=== PATIENT | female | born 1955 | race American Indian/Alaskan Native ===

== ENCOUNTER 2020-05-23 11:30 | Outpatient (CLI) | payer OTHER ==
--- NOTE | 2020-06-04 10:28 | Mammography Report ---
DIGITAL SCREENING MAMMOGRAM WITH CAD, 05/23/2020 INDICATION: Routine screening mammography. SCREENING MAMMOGRAM TECHNIQUE: Digital bilateral 2D mammography was obtained in the craniocaudal and mediolateral obliq ue projections. This examination was interpreted with the benefit of Computer-Aided Detection analysi s. COMPARISON: 12/22/2017 FINDINGS: Breast Density: The breasts are heterogeneously dense, which may obscure small masses. There is no evidence of dominant mass, suspicious calcifications or architectural distortion in eithe r breast. IMPRESSION: No evidence of malignancy Follow up recommendation: Routine yearly BI-RADS Category 1: Negative. A "normal" or negative report should not discourage follow up or biopsy of a clinically significant f inding. A written summary of these findings will be mailed to the patient. The patient will be entered into a mammography reporting system which will generate a reminder letter for the patient's next appointmen t at the appropriate interval. The [employer] recommends yearly mammograms starting at age 40 and continuing as l mushtaq as a woman is in good health. Breast MRI is recommended for women with an approximate 20-25% or greater lifetime risk of breast cancer, including women with a strong family history of breast or ova liseth cancer or who have been treated for Hodgkin's disease. Signer Name: Pérez Lima MD Signed: 06/04/2020 10:23 AM Workstation Name: [id number]
== END 2020-05-23 11:31 | disposition home or self-care (01) ==
LOC: MAMMO 11:30
PROVIDERS: ATTEND Internal Medicine
DX: Z12.31 Encounter for screening mammogram for malignant neoplasm of breast (principal)
CPT/HCPCS: 77067

== ENCOUNTER 2021-04-17 20:57 | Emergency (ER) | payer OTHER ==
[2021-04-17] MEDS ORDERED: ASPIRIN 325 MG TAB PO ONE (23:22)
[2021-04-18 00:07] LABS: Alanine Aminotransferase 44 units/L (7-56); BUN/Creatinine Ratio 16; Blood Urea Nitrogen 11 mg/dL (7-17); Calcium 9.3 mg/dL (8.4-10.2); Hemolysis Index 43
--- NOTE | 2021-04-18 00:22 | XRay Report ---
CHEST 2 VIEWS INDICATION: chestpain. COMPARISON: None. FINDINGS: Support devices: None. Heart: Within normal limits. Lungs/Pleura: No acute air space or interstitial disease. No significant pleural effusion. IMPRESSION: No acute findings. Signer Name: Chavez Back MD Signed: 04/18/2021 12:17 AM Workstation Name: [id number]
[2021-04-18 00:27] LABS: Basophils # (Auto) 0.1 K/mm3 (0.0-0.1); Basophils % (Auto) 1.3 % (0.0-1.8); Eosinophils # (Auto) 0.9 K/mm3 (0.0-0.4); Eosinophils % (Auto) 14.7 % (0.0-4.3); Hematocrit 45.5 % (30.3-42.9); Hemoglobin 15.5 gm/dl (10.1-14.3); Lymphocytes # (Auto) 1.8 K/mm3 (1.2-5.4); Lymphocytes % (Auto) 30.7 % (13.4-35.0); Mean Corpuscular HGB Conc 34 % (30-34); Mean Corpuscular Volume 93 fl (79-97); Monocytes # (Auto) 0.5 K/mm3 (0.0-0.8); Monocytes % (Auto) 7.7 % (0.0-7.3); Platelet Count 320 K/mm3 (140-440); Red Cell Distribution Width 13.6 % (13.2-15.2)
--- NOTE | 2021-04-18 01:21 | Emergency Department Report ---
ED Chest Pain HPI - General Chief Complaint: Chest Pain Stated Complaint: ASTHMA/SOB PUI?: No Time Seen by Provider: 04/18/21 01:16 Source: patient Mode of arrival: Ambulatory Limitations: No Limitations - History of Present Illness Initial Comments: Patient is a 65-year-old female that presents emergency room with complaints of cough, shortness of breath, difficulty breathing and chest tightness. Patient states this is been going on for a week. Patient states her symptoms are worsening. Patient states she has a history of asthma. Patient states she feels like her asthma is flaring up. Patient states been using her asthma rescue inhaler every 2-3 hours. Patient denies fever. Patient states her cough is dry. Patient states that her chest pain is a 5 out of 10 is tender bilateral upper chest. Patient states the pain is nonradiating. Patient denies recent travel. Patient denies recent international travel. Patient denies exposure to the novel coronavirus. Patient denies sick contacts. Patient denies fever and chills. Patient denies loss of smell. Patient denies diarrhea. Patient denies coming in contact with anybody with symptoms of the novel coronavirus. Patient states she has been fully vaccinated against COVID-19. Patient states she does not smoke. Patient states that she has high blood pressure and is compliant with her medications but she missed her meds today. Patient states she has plenty of blood pressure medications at home.. Complaint: chest pain, other (SOB, COUGH) -: Sudden Pain Location: left chest, right chest Severity scale (0 -10): 5 Quality: pressure Consistency: constant Improves With: rest Worsens With: inspiration, palpation, movement re: dyspnea. denies: nausea, vomting, diaphoresis, sense of impending doom Other Symptoms: cough. denies: fever, syncope, rash, acid taste in mouth, leg swelling, palpitations, burping Treatments Prior to Arrival: other (INHALER) Aspirin use within the Past 7 Days: (0) No - Related Data On Oral Contraceptives: No Home Medications Medication Instructions Recorded Confirmed Last Taken Levothyroxine [Synthroid] 50 mcg PO QAM 11/11/13 11/11/13 Unknown hydroCHLOROthiazide [Hctz] 12.5 mg PO QDAY 11/11/13 11/11/13 Unknown Previous Rx's Medication Instructions Recorded Last Taken Type Naproxen [Naprosyn] 500 mg PO BID #30 tablet 11/11/13 Unknown Rx methOCARBAMOL [Robaxin] 500 mg PO BID #30 tab 11/11/13 Unknown Rx traMADoL [Ultram 50 MG tab] 50 mg PO Q6HR PRN #20 tablet 11/11/13 Unknown Rx Acetaminophen/Codeine [Tylenol #3] 1 tab PO Q6H PRN #20 tab 06/11/15 Unknown Rx Cyclobenzaprine HCl [Flexeril 5 MG 5 mg PO Q8HR #15 tablet 06/11/15 Unknown Rx TAB] Ibuprofen [Motrin 800 MG tab] 800 mg PO Q8HR PRN #30 tablet 06/11/15 Unknown Rx methylPREDNISolone [Medrol 4MG 4 mg PO DAILY 6 Days #1 tab.ds.pk 04/18/21 Un known Rx DOSEPAK (21 tabs)] Allergies Allergy/AdvReac Type Severity Reaction Status Date / Time No Known Allergies Allergy Unverified 11/11/13 15:55 Heart Score - HEART Score History: Slightly suspicious EKG: Normal Age: > 65 Risk factors: No known risk factors Troponin: < normal limit HEART Score: 2 - EKG Read Time Time EKG Completed: 23:24 EKG Read Time: 23:26 ED Review of Systems ROS: Stated complaint: ASTHMA/SOB Other details as noted in HPI Constitutional: denies: chills, fever Eyes: denies: eye pain, eye discharge, vision change ENT: denies: ear pain, throat pain Respiratory: see HPI, cough, shortness of breath. denies: wheezing Cardiovascular: as per HPI, chest pain. denies: palpitations Endocrine: no symptoms reported Gastrointestinal: denies: abdominal pain, nausea, diarrhea Genitourinary: denies: urgency, dysuria, discharge Musculoskeletal: denies: back pain, joint swelling, arthralgia Skin: denies: rash, lesions Neurological: denies: headache, weakness, paresthesias Psychiatric: denies: anxiety, depression Hematological/Lymphatic: denies: easy bleeding, easy bruising ED Past Medical Hx - Past Medical History Previous Medical History?: Yes Hx Hypertension: Yes Hx of Cancer: Yes (COLON) Hx Asthma: Yes Additional medical history: Bronchitis - Surgical History Past Surgical History?: Yes Additional Surgical History: Thyroidectomy. Colon surgery - Family History Family history: no significant - Social History Smoking Status: Never Smoker Substance Use Type: None - Medications Home Medications: Home Medications Medication Instructions Recorded Confirmed Last Taken Type Levothyroxine [Synthroid] 50 mcg PO QAM 11/11/13 11/11/13 Unknown History Naproxen [Naprosyn] 500 mg PO BID #30 tablet 11/11/13 Unknown Rx hydroCHLOROthiazide [Hctz] 12.5 mg PO QDAY 11/11/13 11/11/13 Unknown History methOCARBAMOL [Robaxin] 500 mg PO BID #30 tab 11/11/13 Unknown Rx traMADoL [Ultram 50 MG tab] 50 mg PO Q6HR PRN #20 tablet 11/11/13 Unknown Rx Acetaminophen/Codeine [Tylenol #3] 1 tab PO Q6H PRN #20 tab 06/11/15 Unknown Rx Cyclobenzaprine HCl [Flexeril 5 MG 5 mg PO Q8HR #15 tablet 06/11/15 Unknown Rx TAB] Ibuprofen [Motrin 800 MG tab] 800 mg PO Q8HR PRN #30 tablet 06/11/15 Unknown Rx methylPREDNISolone [Medrol 4MG 4 mg PO DAILY 6 Days #1 tab.ds.pk 04/18/21 Unknown Rx DOSEPAK (21 tabs)] ED Physical Exam - General Limitations: No Limitations General appearance: alert, in no apparent distress - Head Head exam: Present: atraumatic, normocephalic - Eye Eye exam: Present: normal appearance - ENT ENT exam: Present: mucous membranes moist - Neck Neck exam: Present: normal inspection - Respiratory Respiratory exam: Present: normal lung sounds bilaterally, chest wall tenderness (Reproduces symptoms with palpation of bilateral chest wall.). Absent: respiratory distress, wheezes, rales, rhonchi - Cardiovascular Cardiovascular Exam: Present: regular rate, normal rhythm. Absent: systolic murmur, diastolic murmur, rubs, gallop - GI/Abdominal GI/Abdominal exam: Present: soft, normal bowel sounds. Absent: distended, tenderness, guarding - Extremities Exam Extremities exam: Present: normal inspection - Back Exam Back exam: Present: normal inspection - Neurological Exam Neurological exam: Present: alert, oriented X3 - Psychiatric Psychiatric exam: Present: normal affect, normal mood - Skin Skin exam: Present: warm, dry, intact, normal color. Absent: rash ED Course Vital Signs 04/17/21 04/18/21 04/18/21 23:17 01:09 01:16 Temperature 98.0 F Pulse Rate 59 L 60 Respiratory 20 9 L 16 Rate Blood Pressure 209/105 204/100 O2 Sat by Pulse 100 97 Oximetry 04/18/21 04/18/21 04/18/21 01:30 01:32 01:46 Temperature Pulse Rate 58 L 61 Respiratory 16 16 Rate Blood Pressure 179/84 157/77 O2 Sat by Pulse 100 100 98 Oximetry 04/18/21 02:00 Temperature Pulse Rate 63 Respiratory 16 Rate Blood Pressure 142/72 O2 Sat by Pulse 98 Oximetry - Reevaluation(s) Reevaluation #1: Initial valuation done. Patient found to have elevated blood pressure in triage. Patient blood pressure rechecked and still elevated. Patient will receive 20 mg of hydralazine. Patient will also be given Solu-Medrol. 04/18/21 01:22 Reevaluation #2: Patient's blood pressure is dramatically better. Patient states she is feeling much better. Patient's lung sounds are still clear. I discussed all results and clinical findings with patient. I discussed plan of care with patient. Patient agrees with plan of care. Patient is stable for discharge. Patient will be discharged home. Patient given discharge instructions. Patient voiced understanding of discharge instructions. 04/18/21 02:21 ED Medical Decision Making - Lab Data Result diagrams: 04/17/21 23:26 04/17/21 23:26 - EKG Data -: EKG Interpreted by Me EKG shows normal: sinus rhythm, axis, intervals, QRS complexes, ST-T waves Rate: normal - Radiology Data Radiology results: report reviewed, image reviewed interpreted by me: Chest x-ray: No pneumonia, no pneumothorax, no foreign body, no osseous findings, no acute findings CHEST 2 VIEWS INDICATION: chestpain. COMPARISON: None. FINDINGS: Support devices: None. Heart: Within normal limits. Lungs/Pleura: No acute air space or interstitial disease. No significant pleural effusion. IMPRESSION: No acute findings. - Medical Decision Making Patient is a 65-year-old female that presents emergency room with complaints of chest tightness, asthmatic symptoms, shortness of breath, cough. Patient symptoms been going on for a week. Patient also found to have elevated blood pressure. Patient given 20 mg of hydralazine. Patient given Solu-Medrol IV for asthma exacerbation. Patient responded well to treatment. Patient had labs done which were essentially unremarkable. Patient had a chest x-ray which was negative for acute findings. Patient had an EKG which was negative for acute findings showed normal ST. I personally reviewed the chest x-ray and EKG. Patient is not require further emergency medical services. Patient not require inpatient services. Patient stable for discharge. Patient discharged home. - Differential Diagnosis Asthma exacerbation,, shortness of breath, chest pain, chest tightness, Critical care attestation.: If time is entered above; I have spent that time in minutes in the direct care of this critically ill patient, excluding procedure time. ED Disposition Clinical Impression: Cough, Shortness of breath Asthma exacerbation Qualifiers: Asthma severity: unspecified severity Asthma persistence: unspecified Qualified Code(s): J45.901 - Unspecified asthma with (acute) exacerbation Chest pain Qualifiers: Chest pain type: unspecified Qualified Code(s): R07.9 - Chest pain, unspecified Hypertension Qualifiers: Hypertension type: primary hypertension Qualified Code(s): I10 - Essential (primary) hypertension Disposition: 01 HOME / SELF CARE / HOMELESS Is pt being admited?: No Does the pt Need Aspirin: No Condition: Stable Instructions: Asthma, Adult, Shortness of Breath, Adult, [id number], Cough, Adult, [id number], Nonspecific Chest Pain, Adult, Form - Asthma Action Plan, Adult, Hypertension (ED), Hypertension, Adult, [id number], Managing Your Hypertension Additional Instructions: Patient to follow-up with primary care in 2 to 3 days. Patient to rest. Patient to increase water. Patient is a low-salt diet. Patient to eat a heart healthy diet. Patient to monitor blood pressure at home. Patient to keep a blood pressure log. Patient to take blood pressure log to all follow-up points. Patient to restart blood pressure medications. Patient to take Tylenol as needed for pain. Patient to take meds as directed. Patient to return to the ER if condition worsens, changes or new symptoms arise. Prescriptions: methylPREDNISolone [Medrol 4MG DOSEPAK (21 tabs)] 4 mg PO DAILY 6 Days #1 tab.ds.pk [facility]errals: [facility] [Primary Care Provider] - 2-3 Days Time of Disposition: 02:32
[2021-04-18] MEDS ORDERED: methylPREDNISolone Sod Succinate 125 MG/2 ML INJ IV ONE (01:22)
[2021-04-18] MEDS ORDERED: hydrALAZINE 20 MG/1 ML INJ IV ONE (01:22)
[2021-04-18 02:12] VITALS: BP 142/72
--- NOTE | 2021-04-21 14:03 | Electrocardiograph Report ---
[facility] Test Date: 2021-04-17 Test Time: 23:24:03 Pat Name: ELENA WILDER Department: Room: Gender: F Dolly Driver: ILDEFONSO : 1955 Requested By: ADE SOSA III Order Number: [id number] Reading MD: Basim Frost Measurements Intervals [place] Rate: 60 P: 20 W[place]: 144 QRS: -7 QRSD: 99 T: 31 QT: 524 QTc: 522 Interpretive Statements Sinus rhythm Nonspecific T abnormalities, anterior leads Prolonged QT interval No previous ECG available for comparison Electronically Signed On 04-21-2021 14:02:47 EDT by Basim Frost
== END 2021-04-18 02:52 | disposition home or self-care (01) ==
LOC: ED 20:57
DX: J45.901 Unspecified asthma with (acute) exacerbation (principal); R06.02 Shortness of breath; R07.9 Chest pain, unspecified; I10 Essential (primary) hypertension; Z85.9 Personal history of malignant neoplasm, unspecified; Z98.890 Other specified postprocedural states; R05 Cough
CPT/HCPCS: 36415; 71046; 80053; 84484; 85025; 93005; 96374; 96375; 99284; J0360; J2930